=== PATIENT | female | born 1940 | race Hispanic/Latino ===

== ENCOUNTER 2017-10-25 06:17 | Day surgery (SDC) | payer MEDICARE ==
[2017-10-25] MEDS ORDERED: NACL BACTERIOSTATIC INFILTRATI ONE (07:07)
--- NOTE | 2017-10-25 07:47 | Anesthesia Consultation ---
Anesthesia Consult and Med Hx Date of service: 10/25/17 - Airway Anesthetic Teeth Evaluation: Chipped ROM Head & Neck: Adequate Mental/Hyoid Distance: Adequate Mallampati Class: Class II Intubation Access Assessment: Good - Pulmonary Exam CTA: Yes - Cardiac Exam Cardiac Exam: RRR - Pre-Operative Health Status ASA Pre-Surgery Classification: ASA2 Proposed Anesthetic Plan: MAC - Pulmonary Hx Smoking: No Hx Respiratory Symptoms: Yes (occ. bronchitis, last time years ago) SOB: No (denies) Hx Sleep Apnea: No (NERY PRE SCREEN HIGH RISK) - Cardiovascular System Hx Hypertension: Yes (X 20 YRS) Hx Coronary Artery Disease: (high cholesterol) Hx Heart Attack/AMI: No Hx Angina: No (denies) Hx Cardia Arrhythmia: No Hx Valvular Heart Disease: No Hx Heart Murmur: No Hx Peripheral Vascular Disease: No - Central Nervous System Hx Neuromuscular Disorder: No Hx Seizures: No CVA: No Hx Back Pain: Yes (2 bulging discs L4-5, L5-S1) Hx Psychiatric Problems: Yes (anxiety ) - Gastrointestinal Hx Gastroesophageal Reflux Disease: Yes (3-4 times per year. none currently) - Endocrine Hx Renal Disease: Yes (Left kidney stone) Hx Liver Disease: No Hx Insulin Dependent Diabetes: No Hx Non-Insulin Dependent Diabetes: No Hx Thyroid Disease: No - Hematic Hx Anemia: Yes (NOT RECENT) Hx Sickle Cell Disease: No - Other Systems Hx Alcohol Use: Yes (BEER OR WINE QD) Hx Substance Use: No Hx Cancer: No Hx Obesity: No
[2017-10-25] MEDS ORDERED: DILAUDID IV PRN (07:48)
[2017-10-25] MEDS ORDERED: ZOFRAN IV PRN (07:48)
--- NOTE | 2017-10-25 07:48 | Anesthesia Day of Surgery ---
Anesthesia Day of Surgery - Day of Surgery Patient Examined: Yes Patient H&P Reviewed: Yes Patient is NPO: Yes
[2017-10-25] MEDS ORDERED: LACTATED RINGERS 1,000 ML IV SCH (08:00)
[2017-10-25] MEDS ORDERED: ANCEF/STERILE WATER 2 GM/20 ML IV NR (08:00)
[2017-10-25] MEDS ORDERED: VERSED ONE (09:18)
[2017-10-25] MEDS ORDERED: SUBLIMAZE ONE (09:19)
[2017-10-25] MEDS ORDERED: XYLOCAINE CARDIAC IV ONE (09:20)
[2017-10-25] MEDS ORDERED: DIPRIVAN 10 MG/ML IV ONE (09:20)
[2017-10-25] MEDS ORDERED: ePHEDrine SULFATE ONE (09:51)
[2017-10-25] MEDS ORDERED: ZOFRAN ONE (09:51)
[2017-10-25] MEDS ORDERED: DECADRON ONE (09:51)
[2017-10-25] MEDS ORDERED: NEO SYNEPHRINE/NS Syringe(OR USE) IV ONE (10:00)
--- NOTE | 2017-10-25 10:13 | Short Stay Summary ---
Short Stay Documentation Date of service: 10/25/17 - History H&P: obtained from office - Allergies and Medications Current Medications: Allergies No Known Allergies Allergy (Verified 10/17/17 14:33) Home Medications Medication Instructions Recorded Confirmed Last Taken Type HYDROcodone/ACETAMINOPHEN 1 tab PO DAILY PRN 03/19/14 10/17/17 03/24/14 History [Hydrocodon-Acetaminoph 7.5-325] Lisinopril/Hydrochlorothiazide 20 mg PO DAILY 03/19/14 10/17/17 07/30/14 05:30 History [Lisinopril-Hctz 20-25 mg Tab] Pravastatin Sodium 40 mg PO DAILY 03/19/14 10/17/17 07/29/14 History Amitriptyline [Elavil] 25 mg PO DAILY 07/20/14 10/17/17 07/29/14 History Aspirin [Lo-Dose Aspirin EC] 81 mg PO DAILY 10/17/17 10/17/17 Unknown History Active Medications Cefazolin Sodium (Ancef/Sterile Water 2 Gm/20 Ml) 2 gm IV PREOP NR Stop: 10/25/17 23:59 Hydromorphone HCl (Dilaudid) 0.5 mg IV Q10MIN PRN PRN Reason: Pain , Severe (7-10) Stop: 10/25/17 18:00 Lactated Ringer's (Lactated Ringers) 1,000 mls @ 42 mls/hr IV DIRECT LI Last Admin: 10/25/17 08:00 Dose: 42 mls/hr Ondansetron HCl (Zofran) 4 mg IV ONCE PRN PRN Reason: Nausea And Vomiting Stop: 10/25/17 18:00 - Brief post op/procedure progress note Date of procedure: 10/25/17 Pre-op diagnosis: left renal 9mm stone Post-op diagnosis: same Procedure: left eswl Anesthesia: GETA Findings: LEFT Renal stone Surgeon: LINDSEY GUADALUPE Estimated blood loss: minimal Pathology: none Condition: stable - Hospital course Hospital course: or pacu home - Disposition Condition at discharge: Good Disposition: -01 TO HOME OR SELFCARE Short Stay Discharge Plan Activity: advance as tolerated Diet: advance as tolerated Follow up with: LINDSEY GUADALUPE MD [Staff Physician] - 7 Days
[2017-10-25] MEDS ORDERED: NORCO 10/325 PO PRN (10:34)
[2017-10-25 11:25] VITALS: BP 116/59
--- NOTE | 2017-10-25 15:00 | Post Anesthesia Evaluation ---
- Post Anesthesia Evaluation Patient Participated: Yes Airway Patent: Yes Stable Respiratory Function: Yes Nausea/Vomiting: No Temp > 96.8F: Yes Pain Manageable: Yes Adequeate Hydration: Yes Anesthesia Complications: No Block Receding Appropriately: Not Applicable
--- NOTE | 2017-11-26 07:30 | Operative Report ---
PREOPERATIVE DIAGNOSIS: Left renal 9 mm stone. POSTOPERATIVE DIAGNOSIS: Left renal 9 mm stone. PROCEDURE: Left renal ESWL. ANESTHESIA: General. FINDINGS: Visible moderate decreased density. ESTIMATED BLOOD LOSS: Minimal. PATHOLOGY: None. CONDITION: Stable. CLINICAL INDICATIONS: The patient counseled RCBA, antibiotics, SCDs. DESCRIPTION OF PROCEDURE: The patient was transferred to OR suite in supine position. Anesthesia begun. Biplanar fluoroscopy was used to target the stone with an F2. There was good visualization of the stone. A total of 2500 shocks were delivered, maximum 5.0 kilovolts. Intermittent repositioning done as necessary. At the end of the procedure, there was decreased density of the stone. This was staged to the size of the stone and previous success, may need possible repeat ESWL. JOB# [id number] ATS/NTS
== END 2017-10-25 11:53 | disposition home or self-care (01) ==
LOC: OR 06:17
PROVIDERS: ATTEND Urology
DX: N20.0 Calculus of kidney (principal); I10 Essential (primary) hypertension; E78.5 Hyperlipidemia, unspecified; K21.9 Gastro-esophageal reflux disease without esophagitis; F41.9 Anxiety disorder, unspecified
CPT/HCPCS: 36415; 50590; 84132; J1100; J2001; J2250; J2370; J2405; J2704; J3010; J7120